=== PATIENT | male | born 1940 | race Caucasian/White ===

== ENCOUNTER 2017-05-04 19:58 | Inpatient (IN) | payer OTHER, SELFPAY ==
--- NOTE | ~2017-05-04 | CN ---
Consultation Report [facility] [address] [place]. [address] NAME: ARNAUD FIELDS : 41 STATUS : ADM IN PAT#: [id number] AGE: 76 ADM/REG DATE : 05/04/17 MR#: [id number] REPORT SERV DATE: 05/05/17 DICTATED BY: ALPESH MA MARK SANDERS DATE: 05/05/17 REPORT STATUS : Draft TRANSCRIBED BY: MODL DATE: 05/05/17 CONSULTATION NOTE DATE OF CONSULTATION: 05/05/2017 REASON FOR CONSULTATION: Rectal cancer. HISTORY OF PRESENT ILLNESS: Mr. Fields is a 76-year-old white male who recently developed weight loss and change in bowel habits. He had a colonoscopy with Dr. Bustillos and was found to have a large obstructing mass at approximately 15 cm. They were unable to pass the scope past the mass. A biopsy was consistent with adenocarcinoma. CTA of the chest, abdomen, and pelvis on 04/29/2017 revealed some noncalcified nodules in the right lung up to 1.1 cm in greatest dimension. There was a 12.5 cm lesion in the distal sigmoid colon and rectum. There was extension through the serosa into the surrounding pericolonic structures. Also appeared to be direct invasion of the distal right ureter by the mass as well as suspected invasion of the bladder. There was pathologic regional lymphadenopathy and suspicious retroperitoneal adenopathy as well. He went on to have an MRI of the pelvis on 05/02/2017. This revealed a 13 x 0.3 x 6.3 x 12.5 cm mass, that arose approximately 9 cm from the anal verge. It appeared to invade the peritoneal cavity and had associated pelvic ascites. There was no MR evidence of superior-posterior bladder wall involvement. There were 7 mm and 6 mm lymph nodes adjacent to the primary tumor in the mesorectal fat. The liver did not demonstrate any metastatic disease. He is now admitted with symptoms of bowel obstruction. He has been evaluated by GI who hope to attempt to place a stent. He has also been evaluated by Urology. They plan to place a right-sided stent when the rectal obstruction is resolved. Currently, the patient denies pain. He has not had fevers, chills, or sweats. PAST MEDICAL HISTORY: Hypertension. HOME MEDICATIONS: Reviewed on the chart. ALLERGIES: NO KNOWN DRUG ALLERGIES. SOCIAL HISTORY: Does not drink. Does not smokes cigarettes, but does chew tobacco and occasionally smokes cigars. FAMILY HISTORY: Not significant for GI cancers. REVIEW OF SYSTEMS: A 12-point review of systems negative except as per HPI. PHYSICAL EXAMINATION: VITAL SIGNS: Blood pressure 130/63, pulse 80, and temperature 97.6. GENERAL APPEARANCE: Well developed, well nourished, in no acute distress. HEENT: Anicteric sclerae. Oropharynx clear. Consultation Report [address] [place]. [address] NAME: ARNAUD FIELDS : 41 STATUS : ADM IN PAT#: [id number] AGE: 76 ADM/REG DATE : 05/04/17 MR#: [id number] REPORT SERV DATE: 05/05/17 DICTATED BY: ALPESH MA MARK SANDERS DATE: 05/05/17 REPORT STATUS : Draft TRANSCRIBED BY: ALYCE DATE: 05/05/17 NECK: Supple. No lymphadenopathy. CARDIOVASCULAR: Regular rate and rhythm. Normal S1 and S2. LUNGS: Clear to auscultation bilaterally. Fair effort. ABDOMEN: Soft and nontender. No organomegaly. EXTREMITIES: No clubbing, cyanosis, or edema. LABORATORY DATA: White count 11,900, hemoglobin 9.2 g, MCV 77, and platelets 461,000. Creatinine 1.42. ASSESSMENT AND PLAN: Mr. Fields is a 76-year-old white male with a very large rectal adenocarcinoma. There appears to be invasion of the right ureter with resultant obstruction. He is now admitted with bowel obstruction. He also has some concerning areas on his chest CT. I had a discussion with the patient and his family. In the typical scenario, we would give neoadjuvant chemotherapy and radiation followed by surgery and followed by additional adjuvant chemotherapy. I discussed with him that with the bulk of this mass we may not be able to do that sequence of events. He may need to have surgery up front if the obstruction cannot be improved by GI. I did discuss with them that the obstruction would need to be improved as well as the ureter obstruction before any kind of chemotherapy could be given. I am also concerned with the lung lesions that he may already have metastatic disease to the chest. Additionally, he has what appears to be some pelvic ascites. I am concerned about the ability to care Mr. Fields of this. I will follow along with you. I have discussed the case with Dr. Dalal and Dr. Aguirre and I also reviewed images with Radiation Oncology earlier today. Thank you for the consultation. [place]/ALYCE Davie Ma IV, M.D. / [id number] CC: Mauricio Dalal MD
--- NOTE | ~2017-05-04 | CN ---
Consultation Report [address] [place]. [address] NAME: ARNAUD FIELDS : 41 STATUS : ADM IN PAT#: [id number] AGE: 76 ADM/REG DATE : 05/04/17 MR#: [id number] REPORT SERV DATE: 05/05/17 DICTATED BY: BRAXTON CALDERON DATE: 05/05/17 REPORT STATUS : Draft TRANSCRIBED BY: MODL DATE: 05/05/17 CONSULTATION DATE OF CONSULTATION: 05/04/2017 REQUESTING PHYSICIAN: Mauricio Dalal MD. REASON FOR CONSULTATION: Rectosigmoid obstruction. Mr. Fields is a 76-year-old male with a recent diagnosis of rectosigmoid cancer with obstructive symptoms. I had been contacted yesterday to try to consider a stent and the procedure is planned today, however, the patient was admitted overnight with a bowel obstruction. The patient apparently denies vomiting but he reports he has not had bowel movements. He does have some abdominal pain at this time. PAST MEDICAL HISTORY: Otherwise includes hypertension, rectal cancer. HOME MEDICATIONS: His home medications included iron sulfate, Bystolic, benazepril, and amlodipine. ALLERGIES: HE HAS NO KNOWN DRUG ALLERGIES. SOCIAL HISTORY: He does not drink. He does chew tobacco and occasionally smokes cigars. FAMILY HISTORY: There is no family history of GI malignancy. REVIEW OF SYSTEMS: A 12-point review of systems was reviewed and otherwise negative unless mentioned in the HPI. PHYSICAL EXAMINATION: VITAL SIGNS: Revealed a temperature of 97.5, blood pressure 110/62, and heart rate of 71 currently. GENERAL: The patient is lying in bed, in no apparent distress. HEENT: His head is atraumatic and normocephalic. Sclerae nonicteric. Conjunctivae were clear. NECK: Revealed no crepitus or thyromegaly. CARDIOVASCULAR: Revealed an irregular heart rhythm. ABDOMEN: Distended and tight but there was no guarding or rebound. Bowel sounds were positive. EXTREMITIES: Exam revealed no clubbing, cyanosis, or edema. NECK: Revealed no lymphadenopathy or crepitus. PSYCHIATRIC: He is alert and oriented x3 with a proper affect and mood. Consultation Report [address] [place]. [address] NAME: ARNAUD FIELDS : 41 STATUS : ADM IN PAT#: [id number] AGE: 76 ADM/REG DATE : 05/04/17 MR#: [id number] REPORT SERV DATE: 05/05/17 DICTATED BY: BRAXTON CALDERON DATE: 05/05/17 REPORT STATUS : Draft TRANSCRIBED BY: ALYCE DATE: 05/05/17 LABORATORY DATA: Laboratory evaluation was notable for white count of 11.9, hemoglobin 9.2. His potassium last night was 2.3 and this has not been repeated. IMPRESSION: Obstructing rectosigmoid mass. PLAN: Given the mass is extensive involving the ureter, the plan was for neoadjuvant therapy prior to surgery as the most optimal treatment per Dr. Dalal. At this point, we will attempt to place a stent when the patient has been stabilized medically hopefully later today. The risks of the procedure explained to the patient and his family in detail. They were notified that any complication could require surgery and could be life threatening. They were notified of the risks of bleeding, infection, notified the risks of perforation from the stent or from air. They were notified that could require surgery. Reaction to anesthesia could also be an issue, therefore we will plan this later in the day should the patient be stable, otherwise it will need to be delayed. GO/MODL Braxton Calderon MD / [id number] CC: MD SAM Ventura M.D.
--- NOTE | ~2017-05-04 | CN ---
Consultation Report [facility] [address] [place]. [address] NAME: ARNAUD FIELDS : 41 STATUS : ADM IN PAT#: [id number] AGE: 76 ADM/REG DATE : 05/04/17 MR#: [id number] REPORT SERV DATE: 05/06/17 DICTATED BY: GISELA GERMAN DATE: 05/05/17 REPORT STATUS : Draft TRANSCRIBED BY: MODL DATE: 05/05/17 CONSULTATION DATE OF CONSULTATION: 05/05/2017 IDENTIFYING DATA: 1. PCP Cierra Hernandez M.D. 2. Wildlife Conservation Professor; primary bending roll hand is Dr. Villegas. Seen inpatient on 05/05/2017, by Dr. Thomas Perez. 3. Upkeep Worker are Braxton Calderon MD and Ernst Singh MD. 4. Surgeon, Dr. Mauricio Dalal. HISTORY OF PRESENT ILLNESS: This is a pleasant 76-year-old male, who presented to [facility] yesterday with abdominal fullness, was found to have colon and ureteral obstruction in the setting of a newly diagnosed colon adenocarcinoma. The patient has a history of hypertension, GERD, arthritis, and presented today with a new onset of atrial fib with RVR with some intermittent supraventricular tachycardia being seen by Dr. Thomas Perez. The hospitalist group has been consulted to help in medical management while the patient is inpatient. The patient's history was obtained through interview with the patient, coupled with review of the customer care consultant's notes, and very few medical records in [employer] [facility] [employer]. PAST MEDICAL HISTORY: 1. The patient wears glasses. 2. Hypertension. 3. New diagnosis of metastatic colon cancer noted with ureteral obstruction. 4. GERD. 5. Arthritis. 6. New onset of atrial fibrillation with rapid ventricular response and intermittent supraventricular tachycardia. HOME MEDICATIONS: 1. Norvasc 5 mg p.o. at bedtime. 2. Enteric-coated aspirin 81 mg p.o. at bedtime. 3. Benazepril 40 mg p.o. at bedtime. 4. Ferrous sulfate 325 mg p.o. three times daily. 5. Bystolic 5 mg p.o. at bedtime. 6. MiraLAX powder one packet 17 g p.o. three times daily for constipation. ALLERGIES: NO KNOWN ALLERGIES. SOCIAL HISTORY: The patient is the second time approximately for 3 years. He is a smoker. He states he smokes one cigar daily and occasionally chews tobacco. He lives in a Consultation [address] [address] NAME: ARNAUD FIELDS : 41 STATUS : ADM IN PAT#: [id number] AGE: 76 ADM/REG DATE : 05/04/17 MR#: [id number] REPORT SERV DATE: 05/06/17 DICTATED BY: GISELA GERMAN DATE: 05/05/17 REPORT STATUS : Draft TRANSCRIBED BY: MODMohit DATE: 05/05/17 single-level home. Very rare alcohol use according to the patient, maybe 1-2 beers per month. The patient has 7 children. One of the 7 is adopted, and one of the children is . FAMILY HISTORY: 1. Mother of old age. She was in her 90s. 2. Father was in his 80s. He had a motor vehicle accident. 3. The patient has one sister who has arthritis and states they do not have a close relation. 4. There is no noted family history of GI malignancy. SURGICAL HISTORY: Tonsillectomy at 7 years of age. REVIEW OF SYSTEMS: Review of systems are negative other than what is included in HPI. The patient is alert and oriented x3. He is somewhat hard of hearing. He has no complaints of shortness of breath. No nausea or vomiting. No abdominal pain although he states he has some fullness feeling. No chest pain. No fever. Displays no confusion or agitation. PHYSICAL EXAMINATION: VITAL SIGNS: From today; blood pressure 130/63, respiratory rate 18, heart rate 78, temperature 97.6, O2 saturation 94% on room air. GENERAL: This is a very pleasant 76-year-old male, he is resting in bed. No acute distress. He is very talkative. NEURO: His head is atraumatic, normocephalic. He is alert and oriented x3. He is some somewhat hard of hearing. His cranial nerves are intact. His mood is pleasant and appropriate. NECK: Supple. Trachea is midline. No JVD noted. No obvious thyromegaly or lymphadenopathy. EENT: Sclerae are nonicteric. Pupils are equal and reactive to light. Nares are patent. The patient states that his mouth is dry. They have limited his p.o. intake. He is n.p.o. with only sips of water. Tongue is midline without deviation. Soft palate rises with phonation. CHEST: No pain with palpation. LUNGS: Clear to auscultation bilaterally. He has normal respiratory effort. He has no increased work of breathing with conversation. CARDIOVASCULAR: S1, S2. No appreciable murmurs, rubs, or gallops. He is on telemetry. Presently, he has a sinus rhythm with a rate at 78 and occasional PVC. He is on an amiodarone drip presently for having an episode of atrial fib with RVR and intermittent SVT. ABDOMEN: Distended, slightly tender and firm. No guarding. Last bowel movement he states he only has liquid, and it was noted on 05/04/2017. EXTREMITIES: No edema. Normal distal pulses. No calf tenderness. He will have TEDs and SCDs placed for DVT prophylaxis. SKIN: Warm and dry. No unusual rashes or lesions. Normal color and turgor. PSYCH: The patient is pleasant, cooperative, appropriate mood and affect. Consultation Report [address] [address] NAME: ARNAUD FIELDS : 42 STATUS : ADM IN [facility]#: [id number] AGE: 76 ADM/REG DATE : 05/04/17 MR#: [id number] REPORT SERV DATE: 05/06/17 DICTATED BY: GISELA GERMAN DATE: 05/05/17 REPORT STATUS : Draft TRANSCRIBED BY: MODL DATE: 05/05/17 LABORATORY DATA: Sodium 140, potassium 2.9, chloride 106, BUN 17, creatinine 1.42. GFR 56, glucose 111, calcium 7.7, magnesium 2.0, white blood cell 11.9, hemoglobin 9.2, hematocrit 29.2, platelets 461, INR 1.2. The patient had an ECG on 05/05/2017 presently sinus rhythm with a rate at 83, noted marked sinus arrhythmia, frequent PVCs and ST and T-wave abnormality. The patient had a TTE which showed normal left ventricular systolic function and estimated EF of 55%. Normal right ventricular chamber size and systolic function, and no significant valvular regurgitation or stenosis. ASSESSMENT AND PLAN: 1. The patient has a history of hypertension. We are aware. He is normally on Bystolic, Norvasc, Lotensin, and aspirin. His p.o. medications are on hold at present time. His blood pressure is controlled. He is on telemetry. He had an amiodarone drip placed today for a new onset of atrial fib fibrillation with RVR. 2. New onset of atrial fib with RVR. The patient was seen by Dr. Perez today from Cardiology. He is placed on an amiodarone drip. His rate is presently in the 70s with a sinus rhythm, noted. 3. Acute kidney injury. The patient's creatinine was 1.42 today. He does have colon cancer with an obstructing mass to ureter. His IV fluids are at 100 an hour to hydrate him. He is n.p.o. with only sips of water for an a.m. procedure. 4. Gastroesophageal reflux disease. Aware. The patient's Protonix is continued daily. 5. Abdominal distention. The patient has been essentially a very healthy man, very few medical issues in his life time. He presents with a colon mass with ureter obstruction. He is n.p.o. after midnight. He is scheduled for a potential sigmoidoscopy with stent placement in the a.m. 6. Hypokalemia. Aware. The patient's last potassium was 2.9. He is on electrolyte protocol as needed but he has normal saline with 40 mEq of KCl at 100 per hour, presently on infusion. 7. DVT prophylaxis. The patient is scheduled for an a.m. procedure. We will initiate TEDs and SCDs for DVT prophylaxis. 8. A.m. labs; renal profile, magnesium, phosphorus, CBC, BMP. The hospitalist group would like to thank you for this consultation. Let us know if we can be of further assistance. SHEREE Gisela German NP / [phone] Consultation Report [address] [place]. [address] NAME: DONNIEARNAUD : 42 STATUS : ADM IN [facility]#: [id number] AGE: 76 ADM/REG DATE : 05/04/17 MR#: [id number] REPORT SERV DATE: 05/06/17 DICTATED BY: GISELA GERMAN DATE: 05/05/17 REPORT STATUS : Draft TRANSCRIBED BY: ALYCE DATE: 05/05/17 CC: MD Cierra Ventura M.D.
--- NOTE | ~2017-05-04 | CN ---
Consultation Report [facility] [address] [place]. [address] NAME: ARNAUD FIELDS : 41 STATUS : ADM IN PAT#: [id number] AGE: 76 ADM/REG DATE : 05/04/17 MR#: [id number] REPORT SERV DATE: 05/05/17 DICTATED BY: ERNST AGUIRRE JR. DATE: 05/05/17 REPORT STATUS : Draft TRANSCRIBED BY: MODL DATE: 05/05/17 CONSULT DATE OF CONSULTATION: 05/05/2017 CHIEF COMPLAINT: Right hydronephrosis. HISTORY OF PRESENT ILLNESS: Mr. Fields is a 76-year-old gentleman, who had a recent diagnosis of rectosigmoid cancer with obstructive symptoms. I was contacted yesterday by Dr. Dalal due to this mass causing some partial obstruction of the right kidney and mild hydronephrosis, as well as possibility of aiding him with resection if needed. He does have rectal obstruction and has consulted Dr. Calderon for a rectal stent placement, which may or may not be successful. If so, the plan will be to perform chemotherapy preop with delayed resection. If not, he may need early resection, at which point the ureter or a portion of it may need to be removed. He is not having any right flank pain or any difficulties emptying his bladder at this point. PAST MEDICAL HISTORY: Significant for hypertension and rectal cancer. ALLERGIES: NONE KNOWN. HOME MEDICATIONS: Include iron sulfate, Bystolic, benazepril, and amlodipine. SOCIAL HISTORY: He does not smoke cigarettes, but does occasionally smoke cigars and uses smokeless tobacco. He does not drink alcohol. FAMILY HISTORY: Essentially negative. REVIEW OF SYSTEMS: Ten-system review was performed and was essentially negative other than that stated above. PHYSICAL EXAMINATION: VITAL SIGNS: Temperature 97.5, blood pressure 110/62, heart rate 71. GENERAL: He is a well-nourished, well-developed male, in no acute distress. HEENT: Normocephalic, atraumatic. NECK: Symmetric. CHEST: Clear to auscultation bilaterally. HEART: Regular rate and rhythm. ABDOMEN: Distended and somewhat tight, but there is no tenderness. Bowel sounds were positive, but somewhat distant and tinkling. EXTREMITIES: Without cyanosis, clubbing, or edema. GENITOURINARY: Exam was deferred today. LABORATORY DATA: White blood cell count 11.9, hemoglobin 9.2, and platelet count of 461. Consultation Report [facility] [address] [place]. [address] NAME: ARNAUD FIELDS : 42 STATUS : ADM IN PAT#: [id number] AGE: 76 ADM/REG DATE : 05/04/17 MR#: [id number] REPORT SERV DATE: 05/05/17 DICTATED BY: ERNST AGUIRRE JR. DATE: 05/05/17 REPORT STATUS : Draft TRANSCRIBED BY: ALYCE DATE: 05/05/17 Electrolytes are within normal limits except for a low potassium of 2.3, creatinine 1.42, BUN of 17. There are no images in the hospital record. He must have an outside CT scan showing the hydronephrosis. I do not have any imaging to review for that and we will have to rely on the records from Dr. Dalal's office for the correct side of his hydronephrosis. ASSESSMENT: Right-sided hydronephrosis with partial obstruction secondary to an obstructing rectal mass. RECOMMENDATIONS: At this point, I will simply await to see how they handle the rectal obstruction if they are successful with a rectal stent and can open him up and delay surgery for neoadjuvant chemotherapy, then I will try and place a stent early next week. If they were unsuccessful and require resection in the next few days, I will aid Dr. Dalal with that resection and possible ureteral resection with reimplant of the ureter. DANIELLA/ALYCE Ernst Aguirre Jr., M.D. / [id number] CC: Mauricio Dalal MD
--- NOTE | ~2017-05-04 | DS ---
Discharge Summary [facility] [address] [place] [address] NAME: ARNAUD FIELDS : 42 STATUS : DIS IN PAT#: [id number] AGE: 76 ADM/REG DATE : 05/04/17 MR#: [id number] REPORT SERV DATE: 05/24/17 DICTATED BY: BEATRIZ DALAL DATE: 05/23/17 REPORT STATUS : Draft TRANSCRIBED BY: MODMohit DATE: 05/23/17 Data Collection from hospitalization DISCHARGE DIAGNOSES: 1. Rectal cancer. 2. Colon obstruction. 3. Deep venous thrombosis of the right upper extremity. 4. Hypokalemia. 5. Hypertension. 6. Gastroesophageal reflux disease. 7. Arthritis. 8. New onset of atrial fibrillation with rapid ventricular response and intermittent supraventricular tachycardia. 9. Tobacco use. CONSULTATIONS: Dr. Braxton Calderon, Dr. Thomas Perez, Dr. Davie Treviño, Dr. Ernst Aguirre Jr., and Gisela Villar. PROCEDURES: 1. Flexible sigmoidoscopy 05/06/2017. 2. Loop colostomy 05/06/2017. 3. Cystoscopy, bilateral retrograde pyelogram, and placement of right double-J stent 05/09/2017. 4. Venous Doppler ultrasound of the left upper extremity 05/08/2017. PATHOLOGY: Colon proximal and distal staple lines segment-no tumor seen. Peritoneal fluid cytology (thin prep)-negative for atypical or malignant cells, mostly mesothelial cells and mild inflammation. DISCHARGE MEDICATIONS: Tylenol 650 mg every six hours as needed, Cordarone 200 mg twice a day, Eliquis 5 mg twice a day, Coreg 3.125 mg twice a day. All home medications were canceled. CONDITION AT DISCHARGE: Stable. DISPOSITION: The patient was discharged home to be followed by home health care on a regular diet with activities as instructed. He will follow up with Dr. Beatriz Dalal in one to two weeks following discharge. He will follow up with Dr. Ernst Aguirre Jr. in six weeks following discharge. He will follow up with Dr. Davie Treviño in one week following discharge. He will follow up with Dr. Dennis Villegas in two to three weeks following discharge. He was to follow up with Dr. Samuel Hernandez on 05/12/2017. HOSPITAL COURSE: This is a 76-year-old man who presented with rectal obstruction from a tumor at the proximal rectum, also causing ureteral obstruction due to compression on the right side. He had undergone a colostomy on Tuesday prior to this admission. He was admitted to the hospital at this time for further evaluation and treatment. Upon admission, he was seen by Dr. Ernst Aguirre Jr. The patient has right-sided Discharge Summary [facility] [id number] [place]. [address] NAME: ARNAUD FIELDS : 41 STATUS : DIS IN PAT#: [id number] AGE: 76 ADM/REG DATE : 05/04/17 MR#: [id number] REPORT SERV DATE: 05/24/17 DICTATED BY: BEATRIZ DALAL DATE: 05/23/17 REPORT STATUS : Draft TRANSCRIBED BY: ALYCE DATE: 05/23/17 hydronephrosis with partial obstruction secondary to an obstructing rectal mass. It was felt that we would simply need to await to see how the rectal obstruction was handled. If there was success with a rectal stent and he could open him up and delay surgery for neoadjuvant chemotherapy, then he would try to place a stent early the following week. If they were unsuccessful and required resection in the next few days, he would aid me with that resection and possible ureteral resection with reimplantation of the ureter. The patient was seen by Dr. Braxton Calderon regarding rectosigmoid obstruction. He had been asked to see the patient to consider a stent. The patient had a bowel obstruction. He apparently denied any vomiting, but he reports that he had not had a bowel movement. He did have some abdominal pain. The potassium level was 2.3. He has an obstructing rectosigmoid mass, which was extensive and involving the ureter. The plan was for neoadjuvant therapy prior to surgery as the most optimal treatment. At this point, we would attempt to place a stent once the patient had been stabilized medically, hopefully later in the day. Following day, he was seen by Dr. Thomas Perez regarding new onset of atrial fibrillation with rapid ventricular response. He was found to have atrial fibrillation with rapid ventricular response on cardiac telemetry monitoring. The patient had no cardiac symptoms at this time. He denied chest pain, pressure, dizziness, or loss of consciousness. His primary complaint was abdominal fullness, distention, as well as discomfort. He said he recently had some dizziness, which prompted a stress test by Dr. Gravity. The patient did note a possible episode of irregular rhythm at [facility] about two weeks prior to this admission when he was supposed to undergo a colonoscopy, but he was unsure of the details. Telemetry revealed atrial fibrillation, and variable heart rate from 80 to 150 beats per minute with occasional intermittent supraventricular tachycardia. Creatinine level was 1.4, white count was 11.9, INR level was 1.2. IV amiodarone was initiated. It was felt that it would be helpful to check an echocardiogram and replace his potassium, which was currently 2.3. Magnesium was going to be checked. He felt it would be helpful to proceed with stenting of the patient's colon as this would help to relieve his intraabdominal pressures as well to alleviate his symptoms of abdominal pain. This may help to control his atrial fibrillation as well. He was also seen by Dr. Davie Treviño regarding rectal cancer. The patient has a very large rectal adenocarcinoma. There appeared to be invasion of the right ureter with resultant obstruction. He had been admitted at this time with bowel obstruction. He also had some concerning areas on his chest CT. A discussion was held with the patient and his family. The typical scenario was that we would give neoadjuvant chemotherapy and radiation followed by surgery, followed by additional adjuvant chemotherapy. It was discussed with the patient that with the bulk of this mass, we may not be able to do that sequence of events. He may need to have surgery upfront if the obstruction could not be improved by GI. It was discussed with him that the obstruction would need to be improved as well as the ureter obstruction before any kind of chemotherapy could be given. There was concern with the lung lesions that he may already have metastatic disease to the chest. Additionally, he had what appeared to be some pelvic ascites. He was also seen by Gisela Villar, she had been asked to see the patient regarding medical management. Potassium level was 2.9. White count was 11.9. The patient is normally on Bystolic, Norvasc, Lotensin, and aspirin for hypertension. His oral medications were on hold at the present time. His blood pressure was controlled. He was on telemetry. He had an amiodarone drip placed earlier in the day for new onset of atrial fibrillation with rapid ventricular response. His rate was presently in the 70s with a sinus rhythm noted. He was being held n.p.o. with sips of water. Protonix was continued. TEDs and SCDs were in place. The patient has microcytic Discharge Summary [facility] [id number] [facility] [place] [place]. [address] NAME: ARNAUD FIELDS : 41 STATUS : DIS IN PAT#: [id number] AGE: 76 ADM/REG DATE : 05/04/17 MR#: [id number] REPORT SERV DATE: 05/24/17 DICTATED BY: BEATRIZ DALAL DATE: 05/23/17 REPORT STATUS : Draft TRANSCRIBED BY: ALYCE DATE: 05/23/17 iron deficiency anemia. He was now in a sinus rhythm. IV amiodarone was working well as long as it was IV infiltrated. He was going to be given IV metoprolol as needed for supraventricular tachycardia/tachycardia until he could take oral beta mai. Echocardiogram was normal. Stress test had been negative. The patient was taken to the endoscopic suite by Dr. Ernst Singh where he underwent flexible sigmoidoscopy. The patient was found to have a malignant, completely obstructing tumor at 15 cm proximal to the anus. Removal was not done. Stent placement failed due to inability to pass the wire across the obstruction. The patient was taken to the operating room where he underwent the above-mentioned procedure. He tolerated this well and there were no complications. On 05/07/2017, there had been no acute events. The patient had undergone diverting colostomy. IV amiodarone was continued for paroxysmal atrial fibrillation. He had no nausea or vomiting. He was afebrile. We were going to advance his diet. The following day, he had no new complaints. A venous Doppler ultrasound of the left upper extremity was performed. The patient was found to have an incomplete obstructing deep vein thrombosis within one or two branches of the brachial vein in the upper left arm, obstructing thrombus was seen within the superficial cephalic vein. He has multiple issues but was stable from an Internal Medicine standpoint at this time. On 05/09/2017, he had, had no issues overnight. He was upset that he would have to undergo more procedures. Heparin drip continued. Oral amiodarone continued at this time as well as low-dose beta-mai. The patient was taken to the operating room by Dr. Ernst Aguirre Jr. where he underwent the above-mentioned procedure. He tolerated this well and there were no complications. The following day, he complained of having an upset stomach with KCl liquid. He was voiding well. IV heparin was going to be changed to Lovenox. Oral KCl was being given. IV fluids were stopped. Discharge planning was performed. On 05/11/2017, he had no new complaints. He was tolerating oral intake. His abdomen was soft. He was ambulating well. He seemed to be in better spirits. His options included chemotherapy with radiation therapy versus chemotherapy alone. With the size of the mass, Dr. Treviño favored chemotherapy alone with plans to add radiation therapy if shrinking. He was going to review the images from [facility]. Eliquis was continued. Discharge instructions were given. Due to his improved and stable condition, he was discharged home to be followed by home health care with the above-stated instructions. Information collected by: Aury Couch I submit the above information as my discharge summary. TG/ALYCE Beatriz Dalal MD / [id number] CC: MD SHEILA Ventura MAX RUSSELL Thomas Perez MD Discharge Summary [address] [address] NAME: ARNAUD FIELDS : 41 STATUS : DIS IN PAT#: [id number] AGE: 76 ADM/REG DATE : 05/04/17 MR#: [id number] REPORT SERV DATE: 05/24/17 DICTATED BY: BEATRIZ DALAL DATE: 05/23/17 REPORT STATUS : Draft TRANSCRIBED BY: MODL DATE: 05/23/17 Maci Cain Jr., IV, M.D. Gregory Olds, MD
--- NOTE | ~2017-05-04 | OP ---
Record Of Operation [facility] [address] [place]. [address] NAME: ARNAUD FIELDS : 41 STATUS : ADM IN [facility]#: [id number] AGE: 76 ADM/REG DATE : 05/04/17 MR#: [id number] REPORT SERV DATE: 05/07/17 DICTATED BY: BEATRIZ DALAL DATE: 05/06/17 REPORT STATUS : Draft TRANSCRIBED BY: MODL DATE: 05/06/17 DATE OF PROCEDURE: 05/06/2017 PREOPERATIVE DIAGNOSIS: Rectosigmoid mass, obstructing. POSTOPERATIVE DIAGNOSIS: Rectosigmoid mass, obstructing. PROCEDURE: technique loop colostomy. ATTENDING SURGEON: Beatriz Dalal MD. CHIEF RESIDENT SURGEON: Shalini Buck MD ANESTHESIA: General endotracheal anesthesia and local anesthesia. SPECIMENS: 1. Proximal and distal staple lines. 2. Skin. BLOOD LOSS: 20 mL. IV FLUIDS: 900 mL crystalloid. COMPLICATIONS: None. INDICATION: Mr. Arnaud Fields is a 76-year-old male who was found to have an obstructing rectal mass. This initially was attempted to be stented by GI; however, they were unable to pass the lesion and therefore could not pass the stent. The patient will be requiring neoadjuvant chemo and possibly radiation and therefore he was offered a diverting colostomy. Risks, benefits were discussed with the patient as well as alternatives. Questions were sought and answered and the patient wished to proceed. DESCRIPTION OF OPERATION: The patient was brought to the operating room, placed supine on the operating table. He had been marked by the ostomy nurse preoperatively. After the satisfactory induction of general endotracheal anesthesia, the patient's abdomen was prepped and draped in the usual sterile fashion. A time-out was performed with all operating staff present and the patient received appropriate preoperative antibiotics. We began by removing a disc of skin at one of the sites on the abdomen just inferior to the umbilicus marked by the ostomy nurse. This was passed off the table as specimen. We then scored the subcutaneous tissue and bluntly dissected this medial and laterally. We encountered the anterior fascia and this was divided with Bovie electrocautery longitudinally and then the rectus muscle again was spread medially and laterally. We encountered the posterior fascia and this was also divided longitudinally and then bluntly dissected medially and laterally. There was a bowel and distended colon immediately under our incision site. We then placed a wound protector within the defect. We were able to move the small bowel medially and we were able to visualize two adjacent loops of colon that were distended. In order to Record Of Operation [facility] [address] [place] [place] [address] NAME: ARNAUD FIELDS : 41 STATUS : ADM IN PAT#: [id number] AGE: 76 ADM/REG DATE : 05/04/17 MR#: [id number] REPORT SERV DATE: 05/07/17 DICTATED BY: BEATRIZ DALAL DATE: 05/06/17 REPORT STATUS : Draft TRANSCRIBED BY: ALYCE DATE: 05/06/17 determine which of this was sigmoid and which of this was transverse, we extended our fascial incision proximally and distally somewhat to give us a larger defect to work through. Ultimately, we were able to discern that the lateral loop was actually transverse colon and came back up and then curved into the descending and sigmoid and the sigmoid was the visible medial loop of colon which went down and we also were able to identify the white line of Toldt. At this point, we were able to mobilize this medial loop up into the wound. The wound protractor was removed and we created a defect in the mesentery underneath the bowel. We passed a stapler under this and divided the bowel at this site giving us a proximal and distal staple line. We then closed some of the dermis on the lateral aspect of our incision, which we had opened for visualization and then we created a loop colostomy in the technique. The inferior staple line was removed using Bovie electrocautery at the medial corner and then this was secured to the skin with 3-0 Vicryl in a non-brooking fashion inferiorly. Superiorly the bowel lumen here was secured to the lumen of the superior proximal aspect. That staple line was removed completely and passed off as well as specimen. We then secured the proximal superior aspect of the ostomy to the superior aspect of the edge of the dermis including brooking sutures. Once we had completed this, we were able to insert a finger below the fascia and through the lumen of each end of our ostomy. No ostomy bar was used for this procedure. The skin was then cleaned and dried and the Mastisol as well as an ostomy appliance pouch were applied in a standard fashion. Prior to applying the ostomy appliance, we did inject the subcutaneous tissues and fascia circumferentially around our defect as well as our ostomy with local anesthesia. Once the ostomy appliance was then placed, the patient was able to be extubated in the operating room and transferred to PACU in stable condition. Dr. Dalal, the attending, was present, scrubbed for the entirety of the case. There were no complications during the case. DICTATED BY: Shalini Buck MD SE/MODL Beatriz Dalal MD / [id number] CC: Beatriz Dalal MD [facility]
--- NOTE | ~2017-05-04 | CN ---
Consultation Report [facility] [address] [place]. [address] NAME: ARNAUD FIELDS : 41 STATUS : ADM IN PAT#: [id number] AGE: 76 ADM/REG DATE : 05/04/17 MR#: [id number] REPORT SERV DATE: 05/05/17 DICTATED BY: THOMAS FULLER DATE: 05/05/17 REPORT STATUS : Draft TRANSCRIBED BY: MODL DATE: 05/05/17 DATE OF CONSULTATION: 05/05/2017 PRIMARY FLOOR TRADER: Dr. Villegas. REASON FOR CONSULTATION: New onset atrial fibrillation with RVR. HISTORY OF PRESENT ILLNESS: Mr. Fields is a 76-year-old gentleman who is a patient of Dr. Villegas's without any known cardiac disease and only a medical history of hypertension today, who presented to [facility] yesterday with abdominal fullness, found to have colon and ureteral obstruction in the setting of newly diagnosed colon adenocarcinoma. Here, he was found to have atrial fibrillation with RVR on cardiac telemetry monitoring, thereby prompting cardiac consultation. In speaking with Mr. Fields, he has no cardiac symptoms at this time and denies having any chest pains, pressures, dizziness, or loss of consciousness. His primary complaint is abdominal fullness and distention as well as discomfort. He recently had some dizziness, which prompted a stress test by Dr. Villegas which per report was not remarkable. In speaking with him, he does note possible episode of irregular rhythm at [facility] about two weeks ago when he was supposed to undergo a colonoscopy, but is unsure of the details. ALLERGIES: NO KNOWN DRUG ALLERGIES. PAST MEDICAL HISTORY: As above. SOCIAL HISTORY: The patient chews tobacco, smokes cigars, and denies using illicit drugs. He lives at home with his and functions independently under normal circumstances. FAMILY HISTORY: Noncontributory for premature cardiovascular disease. HOME MEDICATIONS: 1. Norvasc. 2. Aspirin. 3. Benazepril. 4. Iron. 5. Nebivolol. PHYSICAL EXAMINATION: VITAL SIGNS: Blood pressure 146/88, pulse 100, temperature 99.7. GENERAL: Well developed, well nourished, no acute distress. NEURO: Awake, alert and oriented x3; no focal deficits, appropriate mood. HEENT: Moist mucous membranes, anicteric sclerae, no nasal discharge. NECK: No JVD, no carotid bruit. LUNGS: Clear to auscultation bilaterally, no wheezes, rales or rhonchi. CV: Irregularly irregular. Normal S1, S2. No murmurs, rubs, or gallops. Transmitted bowel sounds auscultated throughout the chest wall. Consultation Report [facility] [id number] [place]. [address] NAME: ARNAUD FIELDS : 41 STATUS : ADM IN PAT#: [id number] AGE: 76 ADM/REG DATE : 05/04/17 MR#: [id number] REPORT SERV DATE: 05/05/17 DICTATED BY: THOMAS FULLER DATE: 05/05/17 REPORT STATUS : Draft TRANSCRIBED BY: ALYCE DATE: 05/05/17 ABD: Distended, mildly tender. No guarding. High pitched bowel sounds auscultated. EXT: No pitting edema, normal distal pulses. SKIN: Warm, dry and intact; no rash. PERTINENT TEST FINDINGS: Telemetry with atrial fibrillation and variable heart rate from 80 to 150 beats per minute with occasional intermittent SVT. Potassium 2.3, creatinine 1.4. White blood cell count 11.9, hemoglobin 9.2. INR 1.2. EKG pending at the time of this dictation. IMPRESSION AND PLAN: Mr. Fields is a 76-year-old gentleman with a history of hypertension who presents with colon obstruction in the setting of newly diagnosed colon adenocarcinoma, found to have atrial fibrillation with rapid ventricular response on telemetry and intermittent brief supraventricular tachycardia as well. Accordingly, I recommend initiating IV amiodarone per the atrial fibrillation protocol. In addition, it will be helpful to check an echocardiogram as well as replete his potassium, which is currently 2.3. I will also check a magnesium. I believe it would be helpful to proceed with stenting of his colon as this will help to release his intraabdominal pressures as well as to alleviate his symptoms of abdominal pain. Collectively, this may help to control his atrial fibrillation as well. Otherwise, I will request records from Dr. Villegas's office in particular the stress test, possibly initiation of anticoagulation following definitive plan for his cancer will be discussed with the primary service. GABRIELLA/ALYCE Thomas Fuller MD / [id number] CC: MD SHEILA Ventura MAX [facility]
--- NOTE | ~2017-05-04 | OP ---
Record Of Operation [facility] [address] [place]. [address] NAME: ARNAUD FIELDS : 42 STATUS : ADM IN [facility]#: [id number] AGE: 76 ADM/REG DATE : 05/04/17 MR#: [id number] REPORT SERV DATE: 05/09/17 DICTATED BY: ERNST AGUIRRE JR. DATE: 05/09/17 REPORT STATUS : Draft TRANSCRIBED BY: MODMohit DATE: 05/09/17 DATE OF PROCEDURE: 05/04/2017 PREOPERATIVE DIAGNOSIS: Right hydronephrosis. POSTOPERATIVE DIAGNOSIS: Right hydronephrosis. PROCEDURE PERFORMED: Cystoscopy, bilateral retrograde pyelograms, placement of right double- J stent. COMPLICATIONS: None. CONSULTATIONS: None. ANESTHESIA: General with a laryngeal mask airway. SPECIMENS: None. DRAINS: None. ESTIMATED BLOOD LOSS: None. Stent 6 x 26 cm without string on the right. INDICATION: Mr. Fields is a 76-year-old gentleman, who was admitted with rectal obstruction from a tumor at the proximal rectum and also causing ureteral obstruction due to compression on the right side. He comes today for double-J stent placement after colostomy was performed last Tuesday. PROCEDURE IN DETAIL: After the patient was identified and proper informed consent was obtained, he was taken to the operating room. General anesthesia was performed without complication using a laryngeal mask airway. He was then prepped and draped in normal sterile fashion in the lithotomy position. Cystoscopic examination of the urethra and bladder reveals a normal penile and prostatic urethra except for some trilobar hypertrophy. His bladder mucosa was examined and found to be mildly trabeculated, but otherwise negative. No tumors, diverticula, or stones were noted. Both ureteral orifices were identified on the left. A retrograde pyelogram shows normal caliber and course to the ureter with a normal collecting system on the right side. He had a focal narrowing of the ureter at the area of the pelvic inlet with severe dilatation of the ureter and renal pelvis on that side. A guidewire was advanced up the ureter across the area of narrowing into the renal pelvis and a 6 x 26 cm double-J stent was then deployed with a nice curl in both the bladder and the kidney. The bladder was drained. The patient was awakened in the operating room and transferred to the postanesthesia care unit in stable condition. I will see him back in the office in approximately six weeks. Record Of Operation [facility] [place]. [address] NAME: ARNAUD FIELDS : 42 STATUS : ADM IN PAT#: [id number] AGE: 76 ADM/REG DATE : 05/04/17 MR#: [id number] REPORT SERV DATE: 05/09/17 DICTATED BY: ERNST AGUIRRE JR. DATE: 05/09/17 REPORT STATUS : Draft TRANSCRIBED BY: ALYCE DATE: 05/09/17 [place]/ALYCE Ernst Aguirre Jr., M.D. / [id number] CC: MD SHEILA Ventura MAX RUSSELL
--- NOTE | ~2017-05-04 | EGD ---
EGD REPORT [facility] [address] [address] NAME: ARNAUD FIELDS : [birth year] STATUS : ADM IN PAT#: [id number] AGE: 76 ADM/REG DATE : 05/04/17 MR#: [id number] REPORT SERV DATE: 05/06/17 DICTATED BY: ERNST BARR DATE: 05/06/17 REPORT STATUS : Draft TRANSCRIBED BY: [facility] DATE: 05/06/17 Endoscopy Center Patient Name: Arnaud Fields Date of : 1940 Attending MD: ERNST BARR MD Procedure Date No Time: 05/06/2017 Procedure: Flexible Sigmoidoscopy Indications: Personal history of malignant neoplasm of the colon Medicines: Monitored Anesthesia Care Complications: No immediate complications. Estimated blood loss: Minimal. Procedure: After obtaining informed consent, the endoscope was passed under direct vision. Throughout the procedure, the patient's blood pressure, pulse, and oxygen saturations were monitored continuously. The GIF IT [id number] was introduced through the anus and advanced to the sigmoid colon. The flexible sigmoidoscopy was technically difficult and complex due to excessive bleeding. The quality of the bowel preparation was adequate. Findings: The perianal and digital rectal examinations were normal. Pertinent negatives include no palpable rectal lesions. A frond-like/villous, fungating, ulcerated completely obstructing large mass was found at 15 cm proximal to the anus. The mass was circumferential. Oozing was present. Multiple attempts were made to pass a wire through the obstruction but were all unsuccessful. Contrast was injected with a balloon catheter and only pooled distal to the area of obstruction, with no contrast passing through the stricture. The procedure was then termiated. 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 Removal was not done. Stent placement failed due to inability to pass a wire across the obstruction. Recommendation: - Return [facility] to [facility]. - Further care per Dr. Dalal for a segmental resection or colostomy at appointment to be scheduled. Procedure Code(s): --- Professional --- 51095, Sigmoidoscopy, flexible; diagnostic, with or without collection of specimen(s) by brushing or washing (separate procedure) EGD REPORT [address] [address] NAME: ARNAUD FIELDS : [birth year] STATUS : ADM IN [facility]#: [id number] AGE: 76 ADM/REG DATE : 05/04/17 MR#: [id number] REPORT SERV DATE: 05/06/17 DICTATED BY: ERNST BARR DATE: 05/06/17 REPORT STATUS : Draft TRANSCRIBED BY: [employer] DATE: 05/06/17 Diagnosis Code(s): --- Professional --- C18.9, Malignant neoplasm of colon, unspecified Z85.038, Personal history of other malignant neoplasm of large intestine CPT copyright 2013 [employer]. All rights reserved. The codes documented in this report are preliminary and upon counseling center manager review may be revised to meet current compliance requirements. Ernst Barr MD ERNST BARR MD 05/06/2017 2:53 PM This report has been signed electronically. Number of Addenda: 0 Note Initiated On: 05/06/2017 1:38 PM Scope Withdrawal Time 0 hours 0 minutes 0 seconds
[~2017-05-04 19:58] MED LIST: HYDROCHLOROT25 MG PO; IBU800 PO; LORTAB 5 PO; LOTE40 PO; [UNRECOGNIZED DRUG - OTHER] PO
[2017-05-04 21:35] LABS: BASOPHILS 0.2 %; BASOPHILS ABSOLUTE 0.02 10/3/uL (0.0-0.16); EOSINOPHILS 0.3 %; EOSINOPHILS ABSOLUTE 0.03 10/3/uL (0.0-0.53); ER CBC TAT 0 Hrs 08 Mins; HEMATOCRIT 29.2 % (40.0-51.0); HEMOGLOBIN 9.2 g/dL (13.6-17.8); IMMATURE GRANULOCYTES 0.5 %; IMMATURE GRANULOCYTES ABSOLUTE 0.06 10/3/uL (0.0-0.11); LYMPHOCYTES 14.8 %; LYMPHOCYTES ABSOLUTE 1.76 10/3/uL (0.67-4.30); MANUAL DIFF NO %; MEAN CORPUS HGB CONC 31.5 g/dL (32.0-36.0); MEAN CORPUSCULAR HEMOGLOB 24.5 pg (26.0-34.0); MEAN CORPUSCULAR VOLUME 77.7 fL (80-100); MEAN PLATELET VOLUME 9.1 fL (9.2-13.0); MONOCYTES 5.5 %; MONOCYTES ABSOLUTE 0.65 10/3/uL (0.21-1.20); NEUTROPHILS 78.7 %; NEUTROPHILS ABSOLUTE 9.38 10/3/uL (2.02-8.40); PLATELET COUNT 461 10/3/uL (150-400); RBC DISTRIBUTION WIDTH 17.3 % (12.0-16.0); RED CELL COUNT 3.76 10/6/uL (4.7-6.1); WHITE BLOOD CELLS 11.9 10/3/uL (4.5-10.5)
[2017-05-04] MEDS ORDERED: BYSTOLIC5 MG PO (21:35)
[2017-05-04] MEDS ORDERED: FERROUS SULF325 M1 PO (21:35)
[2017-05-04] MEDS ORDERED: NORV5 PO (21:36)
[2017-05-04] MEDS ORDERED: MIRALAX POWDER1 PKT PO (21:36)
[2017-05-04] MEDS ORDERED: LOTE40 PO (21:36)
[2017-05-04] MEDS ORDERED: HALF81 PO (21:36)
[2017-05-04 21:41] LABS: INTERNATIONAL NORMAL RATI 1.2 UNITS (-)
[2017-05-04 21:42] LABS: PARTIAL THROMBO TIME 33.9 SEC (22.5-37.2)
[2017-05-04 21:53] LABS: A/G RATIO 0.6 (0.7-1.9); ALBUMIN 2.5 G/DL (3.5-5.0); ALKALINE PHOSPHATASE 101 U/L (45-117); BUN (BLOOD UREA NITROGEN) 17 MG/DL (6-23); CALCIUM, SERUM 7.7 MG/DL (8.5-10.4); CHLORIDE, SERUM 106 MMOL/L (96-112); CO2 (CARBON DIOXIDE) 24 MMOL/L (24-34); CREATININE 1.42 MG/DL (0.70-1.30); DIRECT BILIRUBIN < 0.1 MG/DL (0.0-0.4); GFR AFRICAN AMERICAN 56 ML/MIN (>=60); GFR NON AFRICAN AMERICAN 48 ML/MIN (>=60); GLOBULIN 4.4 G/DL (2.5-4.1); GLUCOSE, SERUM 111 MG/DL (60-99); INDIRECT BILIRUBIN(NOT ORDER) 0.3 MG/DL (0.1-0.9); POTASSIUM, SERUM 2.3 MMOL/L (3.5-5.3); SGOT(AST) 48 U/L (5-40); SGPT(ALT) 41 U/L (5-65); SODIUM, SERUM 140 MMOL/L (135-148); TOTAL BILIRUBIN 0.4 MG/DL (0-1.2); TOTAL PROTEIN 6.9 G/DL (6.0-8.5)
[2017-05-05 12:08] LABS: POTASSIUM, SERUM 2.5 MMOL/L (3.5-5.3)
[2017-05-06 04:52] LABS: BASOPHILS 0.1 %; BASOPHILS ABSOLUTE 0.01 10/3/uL (0.0-0.16); EOSINOPHILS 0.4 %; EOSINOPHILS ABSOLUTE 0.04 10/3/uL (0.0-0.53); HEMATOCRIT 27.2 % (40.0-51.0); HEMOGLOBIN 8.4 g/dL (13.6-17.8); IMMATURE GRANULOCYTES 0.5 %; IMMATURE GRANULOCYTES ABSOLUTE 0.05 10/3/uL (0.0-0.11); LYMPHOCYTES 12.6 %; LYMPHOCYTES ABSOLUTE 1.35 10/3/uL (0.67-4.30); MEAN CORPUS HGB CONC 30.9 g/dL (32.0-36.0); MEAN CORPUSCULAR HEMOGLOB 24.1 pg (26.0-34.0); MEAN CORPUSCULAR VOLUME 78.2 fL (80-100); MEAN PLATELET VOLUME 9.1 fL (9.2-13.0); MONOCYTES 6.6 %; MONOCYTES ABSOLUTE 0.71 10/3/uL (0.21-1.20); NEUTROPHILS 79.8 %; NEUTROPHILS ABSOLUTE 8.54 10/3/uL (2.02-8.40); PLATELET COUNT 361 10/3/uL (150-400); RBC DISTRIBUTION WIDTH 17.5 % (12.0-16.0); RED CELL COUNT 3.48 10/6/uL (4.7-6.1); WHITE BLOOD CELLS 10.7 10/3/uL (4.5-10.5)
[2017-05-06 04:54] LABS: MANUAL DIFF NO %
[2017-05-06 05:02] LABS: BUN (BLOOD UREA NITROGEN) 14 MG/DL (6-23); CALCIUM, SERUM 7.5 MG/DL (8.5-10.4); CHLORIDE, SERUM 115 MMOL/L (96-112); CREATININE 1.15 MG/DL (0.70-1.30); GFR AFRICAN AMERICAN 72 ML/MIN (>=60); GFR NON AFRICAN AMERICAN 62 ML/MIN (>=60); GLUCOSE, SERUM 115 MG/DL (60-99); PHOSPHORUS, SERUM 2.2 MG/DL (2.5-4.5); SODIUM, SERUM 146 MMOL/L (135-148)
[2017-05-06 05:17] LABS: CO2 (CARBON DIOXIDE) 19 MMOL/L (24-34); POTASSIUM, SERUM 2.9 MMOL/L (3.5-5.3)
[2017-05-07 04:40] LABS: BASOPHILS 0.1 %; BASOPHILS ABSOLUTE 0.01 10/3/uL (0.0-0.16); EOSINOPHILS 0 %; HEMATOCRIT 25.6 % (40.0-51.0); HEMOGLOBIN 7.9 g/dL (13.6-17.8); IMMATURE GRANULOCYTES 0.5 %; IMMATURE GRANULOCYTES ABSOLUTE 0.05 10/3/uL (0.0-0.11); LYMPHOCYTES 7.5 %; LYMPHOCYTES ABSOLUTE 0.71 10/3/uL (0.67-4.30); MEAN CORPUS HGB CONC 30.9 g/dL (32.0-36.0); MEAN CORPUSCULAR HEMOGLOB 24.1 pg (26.0-34.0); MONOCYTES 2.8 %; MONOCYTES ABSOLUTE 0.27 10/3/uL (0.21-1.20); NEUTROPHILS 89.1 %; NEUTROPHILS ABSOLUTE 8.48 10/3/uL (2.02-8.40); PLATELET COUNT 295 10/3/uL (150-400); RBC DISTRIBUTION WIDTH 17.8 % (12.0-16.0); RED CELL COUNT 3.28 10/6/uL (4.7-6.1); WHITE BLOOD CELLS 9.5 10/3/uL (4.5-10.5)
[2017-05-07 04:45] LABS: MANUAL DIFF NO %
[2017-05-07 04:50] LABS: BUN (BLOOD UREA NITROGEN) 12 MG/DL (6-23); CALCIUM, SERUM 7.5 MG/DL (8.5-10.4); CHLORIDE, SERUM 117 MMOL/L (96-112); CO2 (CARBON DIOXIDE) 21 MMOL/L (24-34); CREATININE 1.15 MG/DL (0.70-1.30); GFR AFRICAN AMERICAN 72 ML/MIN (>=60); GFR NON AFRICAN AMERICAN 62 ML/MIN (>=60); GLUCOSE, SERUM 165 MG/DL (60-99); PHOSPHORUS, SERUM 2.5 MG/DL (2.5-4.5); SODIUM, SERUM 144 MMOL/L (135-148)
[2017-05-08 16:16] LABS: INTERNATIONAL NORMAL RATI 1.2 UNITS (-); PROTIME (NOT ORD) 15.5 SEC (12.0-14.5)
[2017-05-08 16:17] LABS: PARTIAL THROMBO TIME 41.6 SEC (22.5-37.2)
[2017-05-08 19:43] LABS: BUN (BLOOD UREA NITROGEN) 12 MG/DL (6-23); CHLORIDE, SERUM 112 MMOL/L (96-112); CO2 (CARBON DIOXIDE) 23 MMOL/L (24-34); CREATININE 1.25 MG/DL (0.70-1.30); GFR AFRICAN AMERICAN 65 ML/MIN (>=60); GFR NON AFRICAN AMERICAN 56 ML/MIN (>=60); SODIUM, SERUM 141 MMOL/L (135-148)
[2017-05-08 19:45] LABS: GLUCOSE, SERUM 69 MG/DL (60-99)
[2017-05-09 07:05] LABS: BASOPHILS 0.2 %; BASOPHILS ABSOLUTE 0.02 10/3/uL (0.0-0.16); EOSINOPHILS 1.2 %; EOSINOPHILS ABSOLUTE 0.11 10/3/uL (0.0-0.53); HEMATOCRIT 26.4 % (40.0-51.0); HEMOGLOBIN 8.6 g/dL (13.6-17.8); IMMATURE GRANULOCYTES 1.5 %; IMMATURE GRANULOCYTES ABSOLUTE 0.14 10/3/uL (0.0-0.11); LYMPHOCYTES 16.4 %; LYMPHOCYTES ABSOLUTE 1.56 10/3/uL (0.67-4.30); MEAN CORPUSCULAR HEMOGLOB 25.3 pg (26.0-34.0); MEAN CORPUSCULAR VOLUME 77.6 fL (80-100); MEAN PLATELET VOLUME 8.7 fL (9.2-13.0); MONOCYTES 5.5 %; MONOCYTES ABSOLUTE 0.52 10/3/uL (0.21-1.20); NEUTROPHILS 75.2 %; NEUTROPHILS ABSOLUTE 7.16 10/3/uL (2.02-8.40); PLATELET COUNT 307 10/3/uL (150-400); WHITE BLOOD CELLS 9.5 10/3/uL (4.5-10.5)
[2017-05-09 07:08] LABS: MANUAL DIFF NO %; MEAN CORPUS HGB CONC 32.6 g/dL (32.0-36.0)
[2017-05-09 07:19] LABS: BUN (BLOOD UREA NITROGEN) 10 MG/DL (6-23); CHLORIDE, SERUM 112 MMOL/L (96-112); CO2 (CARBON DIOXIDE) 21 MMOL/L (24-34); GFR AFRICAN AMERICAN 76 ML/MIN (>=60); GFR NON AFRICAN AMERICAN 65 ML/MIN (>=60); GLUCOSE, SERUM 87 MG/DL (60-99); PHOSPHORUS, SERUM 2.1 MG/DL (2.5-4.5); SODIUM, SERUM 139 MMOL/L (135-148)
[2017-05-09 07:20] LABS: CALCIUM, SERUM 6.8 MG/DL (8.5-10.4)
[2017-05-10 03:21] LABS: BASOPHILS 0.2 %; BASOPHILS ABSOLUTE 0.02 10/3/uL (0.0-0.16); EOSINOPHILS 1.5 %; EOSINOPHILS ABSOLUTE 0.15 10/3/uL (0.0-0.53); HEMATOCRIT 24.1 % (40.0-51.0); HEMOGLOBIN 7.5 g/dL (13.6-17.8); IMMATURE GRANULOCYTES 2.2 %; IMMATURE GRANULOCYTES ABSOLUTE 0.22 10/3/uL (0.0-0.11); LYMPHOCYTES 12.7 %; LYMPHOCYTES ABSOLUTE 1.27 10/3/uL (0.67-4.30); MEAN CORPUS HGB CONC 31.1 g/dL (32.0-36.0); MEAN CORPUSCULAR HEMOGLOB 24.3 pg (26.0-34.0); MEAN PLATELET VOLUME 8.3 fL (9.2-13.0); MONOCYTES 5.7 %; MONOCYTES ABSOLUTE 0.57 10/3/uL (0.21-1.20); NEUTROPHILS 77.7 %; NEUTROPHILS ABSOLUTE 7.79 10/3/uL (2.02-8.40); PLATELET COUNT 235 10/3/uL (150-400); RBC DISTRIBUTION WIDTH 17.9 % (12.0-16.0); RED CELL COUNT 3.09 10/6/uL (4.7-6.1)
[2017-05-10 03:22] LABS: MANUAL DIFF NO %
[2017-05-10 03:40] LABS: BUN (BLOOD UREA NITROGEN) 8 MG/DL (6-23); CHLORIDE, SERUM 113 MMOL/L (96-112); CO2 (CARBON DIOXIDE) 20 MMOL/L (24-34); CREATININE 1.13 MG/DL (0.70-1.30); GFR AFRICAN AMERICAN 73 ML/MIN (>=60); GFR NON AFRICAN AMERICAN 63 ML/MIN (>=60); SODIUM, SERUM 142 MMOL/L (135-148)
[2017-05-10 03:47] LABS: CALCIUM, SERUM 6.7 MG/DL (8.5-10.4); GLUCOSE, SERUM 109 MG/DL (60-99); POTASSIUM, SERUM 2.6 MMOL/L (3.5-5.3)
[2017-05-11 08:43] LABS: BASOPHILS 0.2 %; BASOPHILS ABSOLUTE 0.02 10/3/uL (0.0-0.16); EOSINOPHILS 2.7 %; EOSINOPHILS ABSOLUTE 0.24 10/3/uL (0.0-0.53); HEMOGLOBIN 8.7 g/dL (13.6-17.8); IMMATURE GRANULOCYTES 4.2 %; IMMATURE GRANULOCYTES ABSOLUTE 0.38 10/3/uL (0.0-0.11); LYMPHOCYTES 16.9 %; LYMPHOCYTES ABSOLUTE 1.53 10/3/uL (0.67-4.30); MEAN CORPUS HGB CONC 31.2 g/dL (32.0-36.0); MEAN CORPUSCULAR HEMOGLOB 24.6 pg (26.0-34.0); MEAN CORPUSCULAR VOLUME 78.8 fL (80-100); MEAN PLATELET VOLUME 8.7 fL (9.2-13.0); MONOCYTES 5.9 %; MONOCYTES ABSOLUTE 0.53 10/3/uL (0.21-1.20); NEUTROPHILS 70.1 %; NEUTROPHILS ABSOLUTE 6.34 10/3/uL (2.02-8.40); PLATELET COUNT 300 10/3/uL (150-400); RBC DISTRIBUTION WIDTH 18.4 % (12.0-16.0); RED CELL COUNT 3.54 10/6/uL (4.7-6.1)
[2017-05-11 08:44] LABS: HEMATOCRIT 27.9 % (40.0-51.0); MANUAL DIFF NO %
[2017-05-11 08:52] LABS: BUN (BLOOD UREA NITROGEN) 7 MG/DL (6-23); CALCIUM, SERUM 7.7 MG/DL (8.5-10.4); CHLORIDE, SERUM 113 MMOL/L (96-112); CO2 (CARBON DIOXIDE) 21 MMOL/L (24-34); CREATININE 1.17 MG/DL (0.70-1.30); GFR AFRICAN AMERICAN 70 ML/MIN (>=60); GFR NON AFRICAN AMERICAN 61 ML/MIN (>=60); GLUCOSE, SERUM 115 MG/DL (60-99); POTASSIUM, SERUM 2.8 MMOL/L (3.5-5.3); SODIUM, SERUM 144 MMOL/L (135-148)
[2017-05-11] MEDS ORDERED: CORDARONE PO (17:27)
[2017-05-11] MEDS ORDERED: ELIQUIS 5 MG TAB5 MG PO (17:27)
[2017-05-11] MEDS ORDERED: COREG3 PO (17:28)
[2017-05-11] MEDS ORDERED: T PO (17:28)
[2017-06-14] MEDS ORDERED: COREG6 PO (20:15)
[2017-06-14] MEDS ORDERED: HALF81 PO (20:15)
[2017-06-14] MEDS ORDERED: FERROUS SULF325 M1 PO (20:15)
[2017-06-18] MEDS ORDERED: LEVAQUIN750 MG PO (10:18)
== END 2017-05-11 18:43 | disposition home health service (06) | DRG 330 ==
LOC: ER 19:58 → 5SO 21:43 → 6NO 05-05 15:14
PROVIDERS: Emergency Medicine; Hospitalist; Internal Medicine; Internal Medicine Gastroenterology; Surgery
PROC: BT1D1ZZ Fluoroscopy of Right Kidney, Ureter and Bladder using Low Osmolar Contrast (ICD-10-PCS; 2017-05-04)
PROC: 0T768DZ Dilation of Right Ureter with Intraluminal Device, Via Natural or Artificial Opening Endoscopic (ICD-10-PCS; 2017-05-04)
PROC: 0DJD8ZZ Inspection of Lower Intestinal Tract, Via Natural or Artificial Opening Endoscopic (ICD-10-PCS; 2017-05-06)
PROC: 0D1N0Z4 Bypass Sigmoid Colon to Cutaneous, Open Approach (ICD-10-PCS; principal; 2017-05-06 13:44)
DX: C21.8 Malignant neoplasm of overlapping sites of rectum, anus and anal canal (principal); R18.8 Other ascites; N17.9 Acute kidney failure, unspecified; N13.1 Hydronephrosis with ureteral stricture, not elsewhere classified; C79.19 Secondary malignant neoplasm of other urinary organs; I82.622 Acute embolism and thrombosis of deep veins of left upper extremity; I47.1 Supraventricular tachycardia; I48.0 Paroxysmal atrial fibrillation; I10 Essential (primary) hypertension; F17.220 Nicotine dependence, chewing tobacco, uncomplicated; E87.6 Hypokalemia; D50.9 Iron deficiency anemia, unspecified; K21.9 Gastro-esophageal reflux disease without esophagitis; Z79.82 Long term (current) use of aspirin; M19.90 Unspecified osteoarthritis, unspecified site
CPT/HCPCS: 74022; 74420; 80048; 80053; 80069; 82040; 82248; 83690; 83735; 84100; 84132; 85025; 85610; 85730; 88112; 88304; 93005; 93306; 93971; 96374; 99285; A9270-GY; C1758; C1769; C2617; C9113; J0282; J0330; J0690; J1170; J2250; J2270; J2370; J2405; J2710; J2795; J2916; J3010; Q9967